=== PATIENT | male | born 1990 | race Caucasian/White ===

== ENCOUNTER 2020-03-07 20:07 | Emergency (ER) | payer OTHER ==
[~2020-03-07] VITALS: Ht 180.3 cm; Wt 81.8 kg
[2020-03-07 20:45] VITALS: BP 107/53
[2020-03-07] MEDS ORDERED: ACETAMINOPHEN 325 MG TABLET PO ONE (20:45)
[2020-03-07 21:13] LABS: COVID AG,FIA SOURCE NASOPHARYNGEAL
== END 2020-03-07 22:55 | disposition home or self-care (01) ==
LOC: EMS 20:07
DX: J02.9 Acute pharyngitis, unspecified (principal); R50.9 Fever, unspecified; R13.10 Dysphagia, unspecified; Z20.828 Contact with and (suspected) exposure to other viral communicable diseases
CPT/HCPCS: 87426; 87430; 99283; U0003